=== PATIENT | male | born 1995 | race Caucasian/White ===

== ENCOUNTER 2022-12-27 03:57 | Emergency (ER) | payer SELFPAY ==
[2022-12-27 03:44] VITALS: BP 136/94; PULSE 104; RESP 20; TEMP 37.1; O2SAT 98
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
[2022-12-27] MEDS: oxyCODONE 5 mg/Acetaminophen 325 mg TAB 1 TAB PO (04:44)
--- NOTE | 2022-12-27 04:46 | NUR.NOTE ---
Pt placed on care management list for referral to ENT and set up PCP, pt to be seen within 1-2 weeks.
== END 2022-12-27 05:00 | disposition home or self-care (01) ==
LOC: ER 05:06
PROVIDERS: Emergency Provider Emergency Medicine
DX: S02.2XXA Fracture of nasal bones, initial encounter for closed fracture (principal); Y09 Assault by unspecified means
CPT/HCPCS: 99284; 70450; 70486

== ENCOUNTER 2023-01-12 16:31 | Emergency (ER) | payer SELFPAY ==
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
[2023-01-12 16:36] VITALS: BP 147/100; PULSE 96; RESP 20; TEMP 36.8; O2SAT 99
--- NOTE | 2023-01-12 16:45 | RT.EKG_ITS ---
APPROVED REPORT Exam: Resting ECG Reason for Exam: chest pain Patient Location: E HR:87 bpm ECG Measurements Heart Rate 87 AXIS ID 135 P 81 QRSd 102 QRS 71 QT 394 T 28 QTc 474 Conclusion Sinus rhythm...normal P axis, V-rate 60- 99 ST elev, probable normal early repol pattern...ST elevation, age<55 Physician: no stemi, no depressions, suspect early repol
--- NOTE | 2023-01-12 16:45 | DI.CT_ITS ---
Exam(s) CT THORAX CTA EXAM: CT THORAX CTA CLINICAL HISTORY: midline chest pain, eval for dissection. TECHNIQUE: Imaging Protocol: Axial CT angiography was performed with multi-slice acquisition and mu lti-planar reconstructions as well as axial, coronal and sagittal MIP reconstructions. CONTRAST MATERIAL: Intravenous: Omnipaque 350 Contrast volume:75 ml COMPARISON: CT CT BRAIN NECK CTA from 01/12/2023 FINDINGS: Subclavian arteries appear normal. Pulmonary Arteries: No evidence of filling defect to suggest pulmonary emboli. Tracheobronchial tree: Patent where visualized. Mediastinum and Santa: No dominant adenopathy or fluid collection. Pulmonary parenchyma: No consolidation or dominant measurable mass. Pleura: No effusion or pneumothorax. Heart: The heart is not dilated. No coronary artery calcifications are seen. No pericardial effusio n. Aorta: Thoracic aorta non-dilated. No aneurysm. No dissection. Upper abdomen: Unremarkable. Bones: Unremarkable for age. Tubes, Catheters, and Lines: None IMPRESSION: No acute abnormality.. RADIATION DOSE DELIVERED: 354.3mGy.cm Total DLP DATA REPOSITORY: All CT scans at this facility are submitted to the National Radiology Data Registry (NRDR) Dose Index Registry (DIR) with the [employer] (ACR). RADIATION OPTIMIZATION: All CT scans at this facility use at least one of these dose optimization te chniques: automated exposure control; mA and/or kV adjustment per patient size (includes targeted exa ms where dose is matched to clinical indication); or iterative reconstruction.
[2023-01-12 16:48] VITALS: RESP 18
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
[2023-01-12 17:18] LABS: Abs Immature Grans 0.01 10^3/uL (0.0-0.06); Absolute Basophil Count 0.05 10^3/uL (0.0-0.2); Absolute Eosinophil Count 0.07 10^3/uL (0.0-0.7); Absolute Lymphocyte Count 2.04 10^3/uL (1.2-3.4); Absolute Neutrophil Count 3.96 10^3/uL (1.2-6.7); Basophils % 0.8; Eosinophils % 1.1; HGB 15.8 g/dL (13.5-17.5); Immature Grans % 0.2; Lymphocytes % 30.8; MCH 30.7 pg (27.0-33.0); MCHC 35.1 % (32.0-36.0); MCV 88 fL (80-95); MPV 9.2 fL (8.0-11.0); Monocytes % 7.5; Neutrophils % 59.6; Platelet Count 283 10^3/uL (130-400); RBC 5.14 10^6/uL (4.36-5.78); RDW 12.2 % (11.8-14.1); RDW-SD 39.2 fL; WBC 6.63 10^3/uL (4.4-10.8)
[2023-01-12 17:30] LABS: INR 1.1 (0.9-1.1); PTT Activated 26.1 sec (21.5-31.9); Prothrombin Time 11.4 sec (9.3-11.0)
[2023-01-12] MEDS: Omnipaque 350 MG/ML 100 ML BTL 75 ML IJ ×2 (17:32→17:37)
[2023-01-12] MEDS: Normal Saline - Diluent 50 ML VIAL IJ ×2 (17:32→17:36)
[2023-01-12] MEDS: Normal Saline Flush 10 ML SYR IVP (17:33)
[2023-01-12 17:34] LABS: ALT 22 U/L (16-63); AST 15 U/L (15-37); Albumin 4.3 g/dL (3.4-5.0); Alkaline Phosphatase 66 U/L (46-116); Anion Gap 9.6 mmol/L (3-11); BUN 11 mg/dL (7-18); CO2 27.4 mmol/L (21.0-32.0); CREATININE 1.2 mg/dL (0.70-1.30); Calcium 9.5 mg/dL (8.5-10.1); Chloride 99 mmol/L (98-107); Estimated GFR 84.48 (mL/min/1.73m2); Glucose 105 mg/dL (74-106); Potassium 3.4 mmol/L (3.5-5.1); Sodium 136 mmol/L (136-145); Total Protein 8.3 g/dL (6.4-8.2)
[2023-01-12 17:36] LABS: Troponin I < 50 ng/L (<or=60)
[2023-01-12] MEDS: Meclizine 25 MG TAB PO (17:36)
[2023-01-12] MEDS: Acetaminophen 500 MG TAB 1000 MG PO (17:37)
[2023-01-12] MEDS: Normal Saline 1,000 ML 1000 ML IV (17:37)
[2023-01-12 18:34] VITALS: BP 146/88; PULSE 64; RESP 14; O2SAT 96
== END 2023-01-12 18:41 | disposition home or self-care (01) ==
PROVIDERS: Emergency Provider Student in an Organized Health Care Education/Training Program
DX: R51.9 Headache, unspecified (principal); R41.0 Disorientation, unspecified; S02.2XXA Fracture of nasal bones, initial encounter for closed fracture; H81.399 Other peripheral vertigo, unspecified ear; Y09 Assault by unspecified means
CPT/HCPCS: 36415; 70496; 70498; 71275; 80053; 93005; 99285; 84484; 85025; 85610; 85730; 93010; 99284; J3490